=== PATIENT | female | born 1970 | race Caucasian/White ===

== ENCOUNTER → 2016-12-04 | Outpatient (CLI) | payer OTHER ==
[2016-12-04 17:14] LABS: HEMOGLOBIN 9.5 gm/dl (12.3-15.3); RED BLOOD COUNT 4.06 M/UL (4.00-5.10); WHITE BLOOD COUNT 3.5 K/UL (4.5-11.0)
[2016-12-04 17:55] LABS: BUN/CREATININE RATIO 12 (0-10)
== END ==
LOC: RAD 15:47
PROVIDERS: Family Medicine
DX: R53.83 Other fatigue (principal); E78.5 Hyperlipidemia, unspecified; E55.9 Vitamin D deficiency, unspecified; L68.0 Hirsutism
CPT/HCPCS: 36415; 72040; 73030; 73080; 80053; 80061; 82670; 83001; 83002; 84144; 84146; 84402; 84403; 84439; 84443; 85027

== ENCOUNTER 2022-01-23 01:53 | Emergency (ER) | payer OTHER ==
[~2022-01-23 01:53] MED LIST: AUGMENTIN 875-1 EACH PO; DIFLUCAN150 MG PO
== END 2022-01-23 06:21 | disposition home or self-care (01) ==
LOC: ER1 01:53
DX: S80.212A Abrasion, left knee, initial encounter (principal); W22.8XXA Striking against or struck by other objects, initial encounter; Y92.009 Unspecified place in unspecified non-institutional (private) residence as the place of occurrence of the external cause
CPT/HCPCS: 71046; 72100; 72170; 73562; 99283